=== PATIENT | male | born 1990 | race Caucasian/White ===

== ENCOUNTER 2021-04-16 18:11 | Inpatient (IN) | payer MEDICAID ==
[~2021-04-16] VITALS: Ht 170.2 cm; Wt 85.3 kg
[2021-04-16 21:54] LABS: BASOPHILS % (AUTO) 1.1 % (0.0-2.0); EOSINOPHILS % (AUTO) 5.9 % (1.0-6.0); HEMATOCRIT 42.9 % (41-53); HEMOGLOBIN 14.2 g/dL (13.5-17.5); LYMPHOCYTES % (AUTO) 35.6 % (22.0-44.0); MEAN CORPUSCULAR HEMOGLOBIN 31.1 pg (26.0-34.0); MEAN CORPUSCULAR HGB CONC 33.2 G/dL (31.0-37.0); MEAN CORPUSCULAR VOLUME 94 fL (80-100); MONOCYTES # (AUTO) 0.5 K/uL (0.1-1.0); MONOCYTES % (AUTO) 9.9 % (2.0-9.0); NEUTROPHILS # (AUTO) 2.6 K/uL (1.8-7.7); NEUTROPHILS % (AUTO) 47.5 % (40.0-70.0); PLATELET COUNT (AUTO) 265 K/uL (150-450); RED BLOOD CELL COUNT(AUTO) 4.57 MIL/uL (4.50-5.90)
[2021-04-16 22:04] LABS: ANION GAP 7 mmol/L (8-16); CALCIUM, TOTAL 8.7 mg/dL (8.8-10.5); CARBON DIOXIDE 27 mmol/L (22-29); CHLORIDE 103 mmol/L (98-107); CREATININE 0.83 mg/dL (0.60-1.30); GLOMERULAR FILTR. RATE CALC > 60 mL/min (>60); GLUCOSE,RANDOM 94 mg/dL (70-110); POTASSIUM 3.7 mmol/L (3.5-5.1); SODIUM SERUM 137 mmol/L (136-145); UREA NITROGEN, BLOOD 17 mg/dL (7-18)
[2021-04-16 22:13] LABS: COVID AG,FIA SOURCE NASOPHARYNGEAL
[2021-04-16 22:19] LABS: ALANINE AMINOTRANSFERASE 34 U/L (12-78); ALBUMIN 3.9 g/dL (3.4-5.0); ALKALINE PHOSPHATASE 82 U/L (46-116); ASPARTATE AMINOTRANSFERASE 19 U/L (15-37); BILIRUBIN,TOTAL 0.3 mg/dL (0.1-1.0); TOTAL PROTEIN, SERUM 7.1 g/dL (6.4-8.2)
[2021-04-16 22:22] LABS: ACETAMINOPHEN < 2 mcg/mL (10-30)
[2021-04-16] MEDS ORDERED: ZOLPIDEM TARTRATE 10 MG TABLET PO PRN (22:30)
[2021-04-16] MEDS ORDERED: HALOPERIDOL 5 MG TABLET PO PRN (22:30)
[2021-04-16] MEDS ORDERED: LORazepam 2 MG TABLET PO PRN (22:30)
[2021-04-16 22:31] LABS: APPEARANCE,URINE CLEAR (CLEAR); BILIRUBIN,URINE PRELIM. POSITIVE (NEGATIVE); GLUCOSE, URINE (UA) NEGATIVE (NEGATIVE); KETONES,URINE NEGATIVE (NEGATIVE); LEUKOCYTE ESTERASE ,URINE NEGATIVE (NEGATIVE); NITRATE,URINE NEGATIVE (NEGATIVE); OCCULT BLOOD,URINE NEGATIVE (NEGATIVE); PH,URINE 5.5 (5.0-8.0); PROTEIN,URINE NEGATIVE (NEGATIVE)
[2021-04-16 22:33] LABS: SALICYLATE 0.9 mg/dL (2.8-20.0)
[2021-04-16 22:38] LABS: AMPHET/METH SCREEN,URINE POSITIVE (NEGATIVE); BACTERIA,URINE Rare /HPF (None Seen); BARBITURATE SCREEN, URINE NEGATIVE (NEGATIVE); BENZODIAZEPINES SCREEN,URINE NEGATIVE (NEGATIVE); CANNABINOID SCREEN,URINE POSITIVE (NEGATIVE); COCAINE SCREEN,URINE NEGATIVE (NEGATIVE); METHADONE SCREEN, URINE NEGATIVE (NEGATIVE); OPIATE SCREEN,URINE NEGATIVE (NEGATIVE); RBC,URINE 0-2 /HPF (0-2); SQUAMOUS EPITHELIAL CELL,UR Rare /LPF (None Seen); WBC,URINE 0-2 /HPF (0-5)
[2021-04-16 22:40] LABS: PHENCYCLIDINE SCREEN,URINE NEGATIVE (NEGATIVE)
[2021-04-17 03:23] LABS: CHOL/HDL RATIO 4.2 (4.2-7.3); CHOLESTEROL 210 mg/dL (131-200); HDL CHOLESTEROL 50 mg/dL (40-60); LDL CHOL (CALC.) 125 mg/dL (0-130); TRIGLYCERIDES 174 mg/dL (15-150)
[2021-04-17 16:29] VITALS: BP 132/80
[2021-04-17 16:31] VITALS: BP 132/80
[2021-04-18 05:41] VITALS: BP 129/77
[2021-04-18] MEDS ORDERED: ONDANSETRON HCL 4 MG TABLET PO PRN (07:45)
[2021-04-18] MEDS ORDERED: GuaiFENesin/D-METHORPHAN [SUGAR-FREE] 200-20MG/10 ML SYRUP UDCUP PO PRN (07:45)
[2021-04-18] MEDS ORDERED: IBUPROFEN 400 MG TABLET PO PRN (07:45)
[2021-04-18] MEDS ORDERED: CloNIDine HCL 0.1 MG TABLET PO PRN (07:45)
[2021-04-18] MEDS ORDERED: ACETAMINOPHEN 325 MG TABLET PO PRN (07:45)
[2021-04-18] MEDS ORDERED: DOCUSATE SODIUM 100 MG CAPSULE PO PRN (07:45)
[2021-04-18] MEDS ORDERED: MAGNESIUM HYDROXIDE SUSPENSION 30 ML UDCUP PO PRN (07:45)
[2021-04-18] MEDS ORDERED: MAG HYDROX/AL HYDROX/SIMETH ES 30 ML SUSPENSION UDCUP PO PRN (07:45)
[2021-04-18] MEDS ORDERED: PETROLATUM,WHITE 28 GM JELLY TP PRN (07:45)
[2021-04-18] MEDS ORDERED: ALBUTEROL SULFATE HFA 90 MCG/PUFF 8 GM INHALER IH PRN (07:45)
[2021-04-18] MEDS ORDERED: LOPERAMIDE HCL 2 MG CAPSULE PO PRN (07:45)
[2021-04-18] MEDS ORDERED: NICOTINE 14 MG/24 HOUR PATCH TD PRN (07:45)
[2021-04-18 08:30] VITALS: BP 132/90
[2021-04-18 16:17] VITALS: BP 128/86
[2021-04-19] MEDS ORDERED: OMEGA-3/DHA/EPA/FISH OIL 1,000 MG CAPSULE PO SCH (09:00)
== END 2021-04-18 18:30 | disposition home or self-care (01) | DRG 751 ==
LOC: EMS 18:20 → B3A 04-17 13:05
PROVIDERS: ADMIT Psychiatry & Neurology Psychiatry; ATTEND Psychiatry & Neurology Psychiatry
DX: F29 Unspecified psychosis not due to a substance or known physiological condition (principal); R45.850 Homicidal ideations; E78.5 Hyperlipidemia, unspecified; Z20.822 Contact with and (suspected) exposure to COVID-19; F17.210 Nicotine dependence, cigarettes, uncomplicated; F12.90 Cannabis use, unspecified, uncomplicated; R10.13 Epigastric pain; Z88.0 Allergy status to penicillin
CPT/HCPCS: 80053; 80061; 81001; 85025; 99285; G0480; G0481